=== PATIENT | female | born 1955 | race African-American/Black ===

== ENCOUNTER → 2017-04-17 | Outpatient (CLI) | payer OTHER ==
[2016-01-10 10:18] VITALS: BP 141/91
[~2017-04-17] MED LIST: ASPI-630 PO; CLOP75TA57 PO; CRESTOR40 MG PO; CYCL10TA2; FLUT16SP2 NS; HYDR12.53 PO; INSU100V13 SQ; INSU100V9 SQ; LISI10TA2 PO; LORA10TA68 PO; METF-620 PO; METO100T5 PO; MIRT45TA3 PO
--- NOTE | 2017-04-17 10:05 | RAD ---
Abdominal ultrasound, 04/17/2017: History: Abdominal pain The gallbladder is within normal limits in size. There is no sonographic evidence of cholelithiasis. The gallbladder staples are not thickened. The common hepatic duct is of normal caliber. The liver demonstrates generalized increased echogenicity most commonly due to fatty change. No hepatic mass is seen. The pancreas and central retroperitoneum including the aorta and inferior vena cava were largely obscured by overlying bowel. The spleen is within normal limits in size. No renal abnormality is detected. No free fluid is evident in the abdomen. IMPRESSION: 1. Increased hepatic echogenicity compatible with fatty change. 2. Obscuration of the pancreas and central retroperitoneum due to overlying bowel..
== END | disposition home or self-care (01) ==
LOC: US 08:35
PROVIDERS: ATTEND Internal Medicine Gastroenterology
DX: K76.0 Fatty (change of) liver, not elsewhere classified (principal)
CPT/HCPCS: 76700

== ENCOUNTER → 2017-07-26 | Outpatient (CLI) | payer OTHER ==
[2016-01-10 10:18] VITALS: BP 141/91
--- NOTE | 2017-07-26 12:39 | RAD ---
DATE: 07/26/2017. EXAM: DIGITAL SCREEN BILAT W/CAD. HISTORY: Routine mammographic screening. COMPARISON: 08/05/2008. This study was interpreted with the benefit of Computerized Aided Detection (CAD). FINDINGS: The breast parenchyma shows scattered fibroglandular densities. Breast parenchyma level B.. There are no suspicious masses, microcalcifications or architectural distortion. A few scattered calcifications are benign. The parenchymal pattern is stable. BI-RADS CATEGORY: 2 BENIGN FINDING(S). RECOMMENDED FOLLOW-UP: 12M 12 MONTH FOLLOW-UP. PQRS compliance statement: Patient information was entered into a reminder system with a target due date 07/26/2018 for the next mammogram. Mammography is a sensitive method for finding small breast cancers, but it does not detect them all and is not a substitute for careful clinical examination. A negative mammogram does not negate a clinically suspicious finding and should not result in delay in biopsying a clinically suspicious abnormality. "Our facility is accredited by the [employer] Mammography Program."
== END | disposition home or self-care (01) ==
LOC: MAMMO 09:13
PROVIDERS: ATTEND Internal Medicine
DX: Z12.31 Encounter for screening mammogram for malignant neoplasm of breast (principal)
CPT/HCPCS: G0202; 77067

== ENCOUNTER → 2018-10-28 | Outpatient (CLI) | payer OTHER ==
[2016-01-10 10:18] VITALS: BP 141/91
[~2018-10-28] MED LIST changes: -HYDR12.53 PO; +HYDR12.575 PO; -METF-620 PO; +METF10007 PO; -MIRT45TA3 PO; +MIRT45TA58 PO
--- NOTE | 2018-10-28 14:30 | RAD ---
DATE: 10/28/2018 EXAM: MAMMO LEILA SCREENING BILATERAL HISTORY: Asymptomatic screening mammogram COMPARISON: 07/26/2017, 08/05/2008 This study was interpreted with the benefit of Computerized Aided Detection (CAD). Breast Density: SCATTERED The breast parenchyma shows scattered fibroglandular densities. Breast parenchyma level B. FINDINGS: Bilateral CC and MLO views of the breasts were performed. 3-D tomosynthesis was performed in CC and projections. Right breast: There are no suspicious microcalcifications, masses or areas of architectural distortion. Left breast: There are no suspicious microcalcifications, masses or areas of architectural distortion. Findings are stable from prior mammogram. IMPRESSION: Negative bilateral mammogram. BI-RADS CATEGORY: 1 NEGATIVE RECOMMENDED FOLLOW-UP: 12M 12 MONTH FOLLOW-UP PQRS compliance statement: Patient information was entered into a reminder system with a target due date 10/28/2019 for the next mammogram. Mammography is a sensitive method for finding small breast cancers, but it does not detect them all and is not a substitute for careful clinical examination. A negative mammogram does not negate a clinically suspicious finding and should not result in delay in biopsying a clinically suspicious abnormality. "Our facility is accredited by the [employer] Mammography Program."
== END | disposition home or self-care (01) ==
LOC: MAMMO 12:45
PROVIDERS: ATTEND Internal Medicine
DX: Z12.31 Encounter for screening mammogram for malignant neoplasm of breast (principal)
CPT/HCPCS: 77063; 77067

== ENCOUNTER 2020-06-18 14:08 | Emergency (ER) | payer MEDICAID, OTHER ==
[~2020-06-18] VITALS: Ht 175.3 cm; Wt 129.5 kg
[2020-06-18 15:17] LABS: BILIRUBIN,URINE NEGATIVE (NEG); CLARITY,URINE CLEAR; COLOR,URINE YELLOW; NITRITE,URINE NEGATIVE (NEG); PH,URINE 5.5 (<5.0-8.0); PROTEIN,URINE NEGATIVE (NEG-TRACE); UROBILINOGEN,URINE 0.2 mg/dL (0.2 mg/dL)
[2020-06-18 15:21] LABS: BASO % 1 % (0-3); EOS # 0.1 x10^3/uL (0.0-0.7); EOS % 2 % (0-3); HEMATOCRIT 37.9 % (36.0-47.0); HEMOGLOBIN 12.7 g/dL (12.0-15.5); LYMPH # 2.2 x10^3/uL (1.0-4.8); LYMPH % 35 % (24-48); MEAN CORPUSCULAR HEMOGLOBIN 28 pg (25-35); MEAN CORPUSCULAR HGB CONC 33 g/dL (31-37); MEAN CORPUSCULAR VOLUME 82 fL (79-100); MONO # 0.5 x10^3/uL (0.0-1.1); MONO % 8 % (0-9); NEUT # 3.4 x10^3/uL (1.8-7.7); NEUT % 55 % (31-73); PLATELET COUNT 309 x10^3/uL (140-400); RED BLOOD COUNT 4.61 x10^6/uL (3.50-5.40); RED CELL DISTRIBUTION WIDTH 15.4 % (11.5-14.5); WHITE BLOOD COUNT 6.3 x10^3/uL (4.0-11.0)
[2020-06-18 15:25] LABS: BACTERIA,URINE FEW /HPF (0-FEW); RBC,URINE 0 /HPF (0-2); SQUAMOUS EPITHELIAL CELL,UR MANY /LPF; WBC,URINE RARE /HPF (0-4)
[2020-06-18 15:30] LABS: CALCIUM 9.5 mg/dL (8.5-10.1); CREATININE 1.1 mg/dL (0.6-1.0); GFR 60.7; POTASSIUM 4.3 mmol/L (3.5-5.1)
[2020-06-18 15:38] LABS: ALBUMIN 3.5 g/dL (3.4-5.0); ALBUMIN/GLOBULIN RATIO 0.9 (1.0-1.7); MAGNESIUM 1.8 mg/dL (1.8-2.4); TOTAL BILIRUBIN 0.5 mg/dL (0.2-1.0); TOTAL PROTEIN 7.5 g/dL (6.4-8.2)
[2020-06-18] MEDS ORDERED: IV NORMAL SALINE 1000ML BAG 1,000 ML IV ONE (16:15)
--- NOTE | 2020-06-18 17:16 | PHYS DOC ---
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 The patient states that she had greater than 10 episodes of watery brown diarrhea in a 2-hour. 3 days ago. She states that she has not had a bowel movement since. She reports that she has felt a little lightheaded with position changes but denies any fever, cough, chest pain, shortness of breath, vision changes, numbness, tingling, or weakness. She also denies any palpitations, abdominal pain, nausea, vomiting, or rectal bleeding. The patient currently denies any complaints. She states that she called her primary care doctor's office this morning and told him about the diarrhea and they recommended she goes to the hospital to be evaluated. Review of Systems: Review of Systems: Constitutional: Denies fever or chills. [] Eyes: Denies change in visual acuity. [] HENT: Denies nasal congestion or sore throat. [] Respiratory: Denies cough or shortness of breath. [] Cardiovascular: Denies chest pain or edema. [] GI: See HPI : Denies dysuria. [] Musculoskeletal: Denies back pain or joint pain. [] Integument: Denies rash. [] Neurologic: Denies headache, focal weakness or sensory changes. [] Endocrine: Denies polyuria or polydipsia; reports that her blood sugar last night dropped to 58 denies symptoms with the hypoglycemia. [] Psychiatric: Denies depression or anxiety. [] Heart Score: Risk Factors: Risk Factors: DM, Current or recent (<one month) smoker, HTN, HLP, family history of CAD, obesity. Risk Scores: Score 0 - 3: 2.5% MACE over next 6 weeks - Discharge Home Score 4 - 6: 20.3% MACE over next 6 weeks - Admit for Clinical Observation Score 7 - 10: 72.7% MACE over next 6 weeks - Early Invasive Strategies Current Medications: Current Medications Medications (Trade) Dose Ordered Sig/Ranjit Start Time Stop Time Status Last Admin Dose Admin Sodium Chloride 1,000 ml @ 1,000 mls/hr 1X ONCE 06/18/20 16:15 9/11/20 17:14 Allergies: Allergies: Allergies Coded Allergies Type Severity Reaction Last Updated Verified codeine Allergy Intermediate hives 01/10/16 Yes Physical Exam: PE: Constitutional: Well developed, well nourished, no acute distress, non-toxic appearance, obese. [] HENT: Normocephalic, atraumatic, bilateral external ears normal, nose normal; dry mucous membranes. [] Eyes: PERRLA, EOMI, conjunctiva normal, no discharge. [] Neck: Normal range of motion, no stridor. [] Cardiovascular:Heart rate regular rhythm Lungs & Thorax: Respirations even and unlabored, no retractions, no respiratory distress Abdomen: soft, no tenderness, no palpable mass, no guarding Skin: Warm, dry, no erythema, no rash. [] Extremities: No cyanosis, ROM intact, no edema. [] Neurologic: Alert and oriented X 3, no focal deficits noted. [] Psychologic: Affect normal, judgement normal, mood normal. [] Current Patient Data: Labs: Laboratory Tests Test 06/18/20 14:24 06/18/20 15:13 Urine Collection Type Unknown Urine Color Yellow Urine Clarity Clear Urine pH 5.5 (<5.0-8.0) Urine Specific [place] <=1.005 (1.000-1.030) Urine Protein Negative mg/dL (NEG-TRACE) Urine Glucose (UA) Negative mg/dL (NEG) Urine Ketones (Stick) Negative mg/dL (NEG) Urine Blood Negative (NEG) Urine Nitrite Negative (NEG) Urine Bilirubin Negative (NEG) Urine Urobilinogen Dipstick 0.2 mg/dL (0.2 mg/dL) Urine Leukocyte Esterase Negative (NEG) Urine RBC 0 /HPF (0-2) Urine WBC Rare /HPF (0-4) Urine Squamous Epithelial Cells Many /LPF Urine Bacteria Few /HPF (0-FEW) Urine Mucus Slight /LPF White Blood Count 6.3 x10^3/uL (4.0-11.0) Red Blood Count 4.61 x10^6/uL (3.50-5.40) Hemoglobin 12.7 g/dL (12.0-15.5) Hematocrit 37.9 % (36.0-47.0) Mean Corpuscular Volume 82 fL (79-100) Mean Corpuscular Hemoglobin 28 pg (25-35) Mean Corpuscular Hemoglobin Concent 33 g/dL (31-37) Red Cell Distribution Width 15.4 % (11.5-14.5) H Platelet Count 309 x10^3/uL (140-400) Neutrophils (%) (Auto) 55 % (31-73) Lymphocytes (%) (Auto) 35 % (24-48) Monocytes (%) (Auto) 8 % (0-9) Eosinophils (%) (Auto) 2 % (0-3) Basophils (%) (Auto) 1 % (0-3) Neutrophils # (Auto) 3.4 x10^3/uL (1.8-7.7) Lymphocytes # (Auto) 2.2 x10^3/uL (1.0-4.8) Monocytes # (Auto) 0.5 x10^3/uL (0.0-1.1) Eosinophils # (Auto) 0.1 x10^3/uL (0.0-0.7) Basophils # (Auto) 0.0 x10^3/uL (0.0-0.2) Sodium Level 138 mmol/L (136-145) Potassium Level 4.3 mmol/L (3.5-5.1) Chloride Level 102 mmol/L (98-107) Carbon Dioxide Level 27 mmol/L (21-32) Anion Gap 9 (6-14) Blood Urea Nitrogen 15 mg/dL (7-20) Creatinine 1.1 mg/dL (0.6-1.0) H Estimated GFR (Cockcroft-Gault) 60.7 BUN/Creatinine Ratio 14 (6-20) Glucose Level 146 mg/dL (70-99) H Calcium Level 9.5 mg/dL (8.5-10.1) Magnesium Level 1.8 mg/dL (1.8-2.4) Total Bilirubin 0.5 mg/dL (0.2-1.0) Aspartate Amino Transferase (AST) 24 U/L (15-37) Alanine Aminotransferase (ALT) 28 U/L (14-59) Alkaline Phosphatase 119 U/L (46-116) H Total Protein 7.5 g/dL (6.4-8.2) Albumin 3.5 g/dL (3.4-5.0) Albumin/Globulin Ratio 0.9 (1.0-1.7) L Lipase 93 U/L (73-393) Laboratory Tests 06/18/20 15:13 Laboratory Tests 06/18/20 15:13 Vital Signs: Vital Signs Date Time Temp Pulse Resp B/P (MAP) Pulse Ox O2 Delivery O2 Flow Rate FiO2 06/18/20 14:32 98.7 72 16 133/68 (89) 97 Room Air 98.7 EKG: EKG: [] Radiology/Procedures: Radiology/Procedures: [] Course & Med Decision Making: Course & Med Decision Making Pertinent Labs and Imaging studies reviewed. (See chart for details) 64-year-old female presented to the emergency department with complaints of greater than 10 episodes of diarrhea 2 days ago. Physical exam was unremarkable. Work-up included labs and IV fluids. CBC was unremarkable; CMP revealed a creatinine of 1.1, glucose of 146, alk phos 119 otherwise unremarkable, normal lipase; patient's urinalysis was also unremarkable. The patient was given a liter of normal saline in the emergency department. She reported feeling better after the fluids. She denied any complaints. Her vital signs are stable throughout the emergency department visit. Urged patient to increase clear fluids, follow clear liquid diet for 24 hours then advance diet as tolerated starting with bland foods. Follow-up with her primary care doctor next week, return to the ER symptoms worsen. Patient verbalized an understanding of home care, medications, follow-up, and return to ED instructions and was in agreement with the plan of care. [] Dragon Disclaimer: Dragon Disclaimer: This electronic medical record was generated, in whole or in part, using a voice recognition dictation system. Departure Departure Impression: Primary Impression: Diarrhea Qualified Codes: R19.7 - Diarrhea, unspecified Disposition: 01 HOME, SELF-CARE Condition: STABLE Referrals: HAYDEN VICKERS MD (PCP) Patient Instructions: Diarrhea, [id number] Additional Instructions: Recommend clear fluids for the next 24 hours. Then you may advance to bland foods such as bananas, rice, applesauce, and dry toast. Follow-up with your primary care doctor in the next 1-2 days. Return to the emergency room if your symptoms worsen. Justicifation of Admission Dx: Justifications for Admission: Justification of Admission Dx: N/A [employer] EXAMINER Jun 18, 2020 17:15
[2020-06-18 17:37] VITALS: BP 110/62
== END 2020-06-18 18:23 | disposition home or self-care (01) ==
LOC: ER 14:08
DX: R19.7 Diarrhea, unspecified (principal); R42 Dizziness and giddiness; E11.9 Type 2 diabetes mellitus without complications; F32.9 Major depressive disorder, single episode, unspecified; Z87.891 Personal history of nicotine dependence; Z88.5 Allergy status to narcotic agent
CPT/HCPCS: 36415; 80053; 81001; 83690; 83735; 85025; 96360; 99285; J7030

== ENCOUNTER → 2020-12-03 | Outpatient (CLI) | payer MEDICAID ==
[~2020-12-03] MED LIST changes: +LISI10TA16 PO; -LISI10TA2 PO
--- NOTE | 2020-12-03 18:08 | RAD ---
EXAMINATION: XR FOOT_RIGHT 3 VIEWS CLINICAL HISTORY: Right foot pain TECHNIQUE: XR FOOT_RIGHT 3 VIEWS Number of Images/Views: 3 COMPARISON: None FINDINGS: Joint spaces and alignment maintained. No focal osteopenia or erosive changes. No acute fracture. Tin y plantar calcaneal enthesophyte. Mild soft tissue prominence along the dorsal and lateral aspects of the forefoot. Vascular calcifications. IMPRESSION: No acute osseous abnormality right foot. Electronically signed by: Jeffrey Gale DO (12/03/2020 6:06 PM) [id number]
--- NOTE | 2020-12-05 03:06 | RAD ---
EXAM: Right lower extremity arterial Doppler. HISTORY: Right lower extremity pain, peripheral arterial disease. COMPARISON: None. FINDINGS: Grayscale and Doppler analysis of the right lower extremity arterial system was performed. There is a triphasic waveform within the common femoral artery. They become biphasic within the proxi mal superficial femoral artery and remain biphasic through the dorsalis pedis artery. There are no fo gian elevated peak systolic velocities. IMPRESSION: 1. Findings consistent with mildly flow-limiting stenosis within the common femoral/proximal superfic ial femoral artery. Electronically signed by: Jose De Jesus Delgado MD (12/05/2020 3:04 AM) [facility]
== END ==
LOC: US 15:12
PROVIDERS: ATTEND Internal Medicine
DX: I70.201 Unspecified atherosclerosis of native arteries of extremities, right leg (principal); E11.621 Type 2 diabetes mellitus with foot ulcer; M79.89 Other specified soft tissue disorders
CPT/HCPCS: 73630; 93926

== ENCOUNTER → 2020-12-14 | Outpatient (CLI) | payer MEDICAID ==
--- NOTE | 2020-12-14 15:39 | RAD ---
EXAM: Bilateral digital screening mammogram with tomosynthesis. HISTORY: 65-year-old female presents for screening mammography. TECHNIQUE: Full-field digital craniocaudal and mediolateral oblique 2D and 3D tomosynthesis images of both breasts are obtained for evaluation. Computer aided detection was applied. COMPARISON: 10/28/2018 BREAST PARENCHYMAL DENSITY: Level B - Scattered fibroglandular densities. FINDINGS: There is no new suspicious mass, microcalcification or region of architectural distortion. IMPRESSION: BI-RADS Category 2: Benign finding(s). RECOMMENDATION: Annual mammography is recommended. If your mammogram demonstrates that you have dense breast tissue, which could hide abnormalities, and if you have other risk factors for breast cancer that have been identified, you might benefit from s upplemental screening tests that may be suggested by your ordering physician. Dense breast tissue, i n and of itself, is a relatively common condition. This information is not provided to cause undue c oncern, but rather to raise your awareness and to promote discussion with your physician regarding th e presence of other risk factors, in addition to dense breast tissue. A report of your mammography re sults will be sent to you and your physician. You should contact your physician if you have any ques tions or concerns regarding this report. Mammography is a sensitive method for finding small breast cancers, but it does not detect them all a nd is not a substitute for careful clinical examination. A negative mammogram does not negate a clin ically suspicious finding and should not result in delay in biopsying a clinically suspicious abnorma lity. PQRS compliance statement - Patient information was entered into a reminder system with a target due date for the next mammogram. "Our facility is accredited by the [employer] Mammography Program." Electronically signed by: Yohana Steiner MD (12/14/2020 3:37 PM) [id number]
== END ==
LOC: MAMMO 10:00
PROVIDERS: ATTEND Internal Medicine
DX: Z12.31 Encounter for screening mammogram for malignant neoplasm of breast (principal)
CPT/HCPCS: 77063; 77067

== ENCOUNTER 2020-12-24 10:49 | Emergency (ER) | payer MEDICAID ==
[~2020-12-24] VITALS: Ht 175.3 cm; Wt 132.0 kg
[2020-12-24 11:52] VITALS: BP 154/67
--- NOTE | 2020-12-24 11:54 | PHYS DOC ---
Past Medical History Past Medical History: Depression, Diabetes-Type II Past Surgical History: No Surgical History Smoking Status: Former Smoker Alcohol Use: None General Adult EDM: Chief Complaint: MECHANICAL FALL HPI: HPI: This is a 65-year-old female presenting the emergency department today after having a mechanical fall twice. Her first mechanical fall was last Sunday and then she had another one on Sunday. She denies passing out feeling palpitatio ns or short of breath. She was walking with her walker on Sunday when her walker slipped from a slippery floor and she fell on her tailbone. She has had tailbone pain since then. Her pain is moderate worse with walking. No alleviating or exacerbating factors. Review of systems is negative for chest pain shortness of breath abdominal pain. She denies any slurred speech or numbness or weakness in her arms or legs. All other review of system negative ED course: 65-year-old female presenting after 2 mechanical falls. On arrival the patient's blood pressure 154/67, heart rate 96. Afebrile. CT pelvis and CT head taken in the emergency department. CT head unremarkable. CT pelvis shows no acute fractures or bony distractions. Patient's knee x-ray was unremarkable for acute fracture dislocation. Moderate osteoarthritis present. CBC and chemistry panel unremarkable other than elevated glucose. Will discharge patient to follow-up with PCP in 1 to 2 days. The patient has been examined and was not found to have an emergency medical condition. The patient was then discharged home in stable condition to follow up with their primary care physician over the next 1-2 days. They were to return if their symptoms worsened or if they were concerned for any reason. They were also instructed to return to the emergency department if they were unable to get the recommended and appropriate follow-up. [id number] discharge instructions and return precautions were given. Patient's questions were answered to their satisfaction. Patient is comfortable with plan. Heart Score: C/O Chest Pain: No Risk Factors: Risk Factors: DM, Current or recent (<one month) smoker, HTN, HLP, family history of CAD, obesity. Risk Scores: Score 0 - 3: 2.5% MACE over next 6 weeks - Discharge Home Score 4 - 6: 20.3% MACE over next 6 weeks - Admit for Clinical Observation Score 7 - 10: 72.7% MACE over next 6 weeks - Early Invasive Strategies Allergies: Allergies: Allergies Coded Allergies Type Severity Reaction Last Updated Verified codeine Allergy Intermediate hives 01/10/16 Yes Physical Exam: PE: General Appearance alert, cooperative, no distress, responsive Head Normocephalic, without obvious abnormality, atraumatic Eyes conjunctivae/corneas clear. PERRL, EOM's intact. Nose Nares normal. Septum midline. Mucosa normal. No drainage or sinus tenderness. Throat no blood or lacerations, normal alignment Neck supple, symmetrical, trachea midline, cervical collar in place Back/Spine symmetric, normal curvature. ROM normal, no abrasions, no tenderness to palpation, no step-offs Lungs clear to auscultation bilaterally Chest Wall normal ribcage without tenderness to palpation, crepitus or emphysema Heart REG rate and regular rhythm, S1, S2 normal, no murmur, click, rub or gallop Abdomen soft, non-tender. Bowel sounds normal. 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 The patient's right lower extremity is nontender at the ankle. No pain with passive range of motion of the hip. She has some pain in the right knee which she reports is chronic but was worsened by her fall. Normal anterior and posterior drawer test. Joint is stable. Normal neurovascular status. Palpable pulses and cap refill. The upper extremities bilaterally are nontender the joints with normal range of motion. Nontender clavicles. Normal neurovascular status including normal motor and sensory function of the hands. Palpable pulse with 2-second cap refill. Pulses 2+ and symmetric Skin Skin color, texture, turgor normal. No rashes or lesions Neurologic Grossly normal Eye opening: (4) spontaneous Best motor response: (6) obeys verbal command Best verbal response: (5) oriented and converses Total [place] (E + M + V) = 15 Current Patient Data: Vital Signs: Vital Signs Date Time Temp Pulse Resp B/P (MAP) Pulse Ox O2 Delivery O2 Flow Rate FiO2 12/24/20 11:24 97.7 96 20 154/67 (96) 98 Room Air 97.7 EKG: EKG: EKG shows sinus rhythm with a mildly tachycardic rate. ST segments congruent. Not suggestive of acute ischemia. [] Radiology/Procedures: Radiology/Procedures: [] Course & Med Decision Making: Course & Med Decision Making Pertinent Labs and Imaging studies reviewed. (See chart for details) [] Gautam Disclaimer: Gautam Disclaimer: This electronic medical record was generated, in whole or in part, using a voice recognition dictation system. Departure Departure Impression: Primary Impression: Tail bone pain Additional Impressions: Head injury Knee pain Disposition: 01 DC HOME SELF CARE/HOMELESS Condition: STABLE Referrals: HAYDEN VICKERS MD (PCP) Patient Instructions: Fall Prevention and Home Safety, Head Injury, Adult, Tailbone Injury Additional Instructions: EMERGENCY DEPARTMENT GENERAL DISCHARGE INSTRUCTIONS Follow-up with your primary physician in 1 to 2 days. Return to the emergency department if you have any new or concerning findings. Thank you for coming to [facility] Emergency Department (ED) today and trusting us with you care. We trust that you had a positive experience in our Emergency Department. If you wish to speak to the department management, you may call the Director at [phone]. Follow up is important in emergency/acute care visits. This condition should be evaluated by your primary care physician and any necessary consulting services for continued management within a few days (1-2) after discharge. Return to the emergency department if you have any new or concerning symptoms including but not limited to fever, chills, nausea, vomiting, intractable pain, any new rashes, chest pain, shortness of breath, uncontrolled bleeding, difficulty breathing, and/or vision loss. 1. Do you have a private Doctor? If you do not have a private doctor, please ask for a resource list of physicians or clinics that may be able to assist you with follow up care. 2. If a lab test or culture has been done and does not come back immediately, your results will be reviewed and you will be notified if you need a change in treatment. 3. Your care today has been supervised by a physician who is specially trained in emergency care. Many problems require more than one evaluation for a complete diagnosis and treatment. We recommend that you schedule your follow up appointment as recommended to ensure complete treatment of you illness or injury. If you are unable to obtain follow up care and continue to have a problem, or if your condition worsens, we recommend that you return to the ED. 4. We are not able to safely determine your condition over the phone nor are we able to give sound medical advice over the phone. For these safety reasons, if you call for medical advice we will ask you to come to the ED for further evaluation. IF YOUR SYMPTOMS WORSEN OR NEW SYMPTOMS DEVELOP, OR YOU HAVE CONCERNS ABOUT YOUR CONDITION; OR IF YOUR CONDITION WORSENS WHILE YOU ARE WAITING FOR YOUR FOLLOW UP APPOINTMENT; EITHER CONTACT YOUR PRIMARY CARE DOCTOR, THE PHYSICIAN WHOSE NAME AND NUMBER YOU WERE GIVEN, OR RETURN TO THE ED IMMEDIATELY. SUBHA ARCHER MD Dec 24, 2020 11:54
--- NOTE | 2020-12-24 12:27 | EKG ---
[facility] [address] [place] [address] Test Date: 2020-12-24 Test Time: 11:43:52 Pat Name: TRACY ARAUJO Department: Room: Gender: F Manager Material: : 1955 Requested By: SUBHA ARCHER Order Number: [id number] Reading MD: Measurements Intervals [place] Rate: 97 P: 90 WI: 134 QRS: -21 QRSD: 84 T: 85 QT: 346 QTc: 444 Interpretive Statements SINUS RHYTHM LEFTWARD AXIS T ABNORMALITY IN HIGH LATERAL LEADS ABNORMAL ECG RI6.02 No previous ECG available for comparison
--- NOTE | 2020-12-24 12:51 | RAD ---
EXAM: CT Head without IV contrast INDICATION: Reason: FALL WITH HEAD TRAUMA / Spl. Instructions: / History: TECHNIQUE: Multi-detector row CT images were obtained of the head without the use of IV contrast. All CT scans performed at this facility utilize dose optimization techniques as appropriate to the exam, including the following: Automated exposure control and adjustment of the mA and/or KV according to patient size (this includes techniques or standardized protocols for targeted exams where dose is ind ication/reason for exam). COMPARISON: None FINDINGS: BRAIN PARENCHYMA: No evidence of acute intraparenchymal hemorrhage or infarct. No abnormal parenchyma l density or mass. VENTRICLES & EXTRA-AXIAL SPACES: Ventricles are within normal limits. Basilar cisterns are patent. N o pathologic extra-axial fluid collection or mass. ORBITS: Orbital contents are unremarkable. SINUSES: Visualized paranasal sinuses and mastoid air cells are clear. OSSEOUS & SOFT TISSUES: Calvarium and skull base are intact. IMPRESSION: Unremarkable CT of the head without contrast. EXAM: CT Pelvis without IV contrast INDICATION: Reason: FALL WITH HEAD TRAUMA / Spl. Instructions: / History: TECHNIQUE: Multi-detector row images were acquired from the iliac crest through the lesser trochanter s without the use of IV contrast. Sagittal and coronal images were acquired from the transaxial data. All CT scans performed at this facility utilize dose optimization techniques as appropriate to the e xam, including the following: Automated exposure control and adjustment of the mA and/or KV according to patient size (this includes techniques or standardized protocols for targeted exams where dose is indication/reason for exam). ORAL CONTRAST: None COMPARISON: None FINDINGS: The absence of IV contrast limits evaluation of soft tissue pathology. OSSEOUS:No evidence of fracture or bone destruction. Sacroiliac joints and pubic symphysis do not [place] ear diastatic. BLADDER: Unremarkable REPRODUCTIVE ORGANS: Hysterectomy. Ovaries not seen and may be surgically absent as well. BOWEL: Visualized bowel is unremarkable. MESENTERY/PERITONEUM/RETROPERITONEUM: Unremarkable VASCULAR: Unremarkable LYMPH NODES: No adenopathy SOFT TISSUES: Partially imaged ventral abdominal wall shows subcutaneous fat stranding that could re flect blunt injury. Correlate clinically. IMPRESSION: Possible ventral abdominal wall contusion. Correlate clinically. Otherwise no acute traumatic finding s in the pelvis on CT, status post previous hysterectomy. Electronically signed by: Chepe Steward MD (12/24/2020 12:49 PM) [id number]
[2020-12-24 13:05] LABS: BASO % 1 % (0-3); EOS # 0.1 x10^3/uL (0.0-0.7); EOS % 2 % (0-3); HEMATOCRIT 37.8 % (36.0-47.0); HEMOGLOBIN 12.4 g/dL (12.0-15.5); LYMPH # 2.2 x10^3/uL (1.0-4.8); LYMPH % 35 % (24-48); MEAN CORPUSCULAR HEMOGLOBIN 27 pg (25-35); MEAN CORPUSCULAR HGB CONC 33 g/dL (31-37); MEAN CORPUSCULAR VOLUME 81 fL (79-100); MONO # 0.5 x10^3/uL (0.0-1.1); MONO % 8 % (0-9); NEUT # 3.3 x10^3/uL (1.8-7.7); NEUT % 54 % (31-73); PLATELET COUNT 300 x10^3/uL (140-400); RED BLOOD COUNT 4.69 x10^6/uL (3.50-5.40); WHITE BLOOD COUNT 6.2 x10^3/uL (4.0-11.0)
[2020-12-24 13:17] LABS: CREATININE 0.8 mg/dL (0.6-1.0); GFR 87.4; POTASSIUM 4.5 mmol/L (3.5-5.1)
[2020-12-24 13:22] LABS: ALBUMIN 3.4 g/dL (3.4-5.0); TOTAL BILIRUBIN 0.5 mg/dL (0.2-1.0); TOTAL PROTEIN 6.8 g/dL (6.4-8.2)
--- NOTE | 2020-12-24 13:32 | RAD ---
XR KNEE 3 [id number] 12/24/2020 12:17 PM INDICATION: Right knee pain COMPARISON: None available. TECHNIQUE: 3 views the right knee are provided. FINDINGS/ IMPRESSION: 1. There is moderate medial femorotibial joint space narrowing with marginal osteophytosis and subcor tical sclerosis compatible with moderate osteoarthrosis. 2. No acute fracture or dislocation. 3. There is a 2 cm ossific body in the suprapatellar joint space, possibly involving the quadriceps t endon. No significant joint effusion. Electronically signed by: Leola López MD (12/24/2020 1:29 PM) [id number]
== END 2020-12-24 14:02 | disposition home or self-care (01) ==
LOC: ER 10:49
DX: S09.8XXA Other specified injuries of head, initial encounter (principal); M25.561 Pain in right knee; M89.8X8 Other specified disorders of bone, other site; F32.9 Major depressive disorder, single episode, unspecified; E11.9 Type 2 diabetes mellitus without complications; Z87.891 Personal history of nicotine dependence; Z88.5 Allergy status to narcotic agent; W18.39XA Other fall on same level, initial encounter; Y93.89 Activity, other specified; Y92.89 Other specified places as the place of occurrence of the external cause; Y99.8 Other external cause status
CPT/HCPCS: 36415; 70450; 72192; 73562; 80053; 84484; 85025; 93005; 99285